=== PATIENT | male | born 1980 | race Caucasian/White ===

== ENCOUNTER 2019-03-12 08:37 | Emergency (ER) | payer OTHER ==
--- OUTSIDE RECORDS SUMMARY | 2019-03-12 08:51 | XMS REPORT | Continuity of Care Document ---
:1980 External Reference #:[id number] Author Name Brett Wing MD (transmitted by agent of provider John Alegria) Address [address] [place] [address] Care Team Providers Name Role Phone Devonte Oneil DO - Family Medicine Care Team Information Glazier Apprentice [phone] Problems Active Problems Provider Date Closed fracture of metatarsal bone Brett Wing MD Onset: 02/25/2019 Open fracture of talus Brett Wing MD Onset: 02/25/2019 Closed traumatic dislocation ankle joint Brett Wing MD Onset: 02/25/2019 Social History Type Date Description Comments Sex Unknown Tobacco Use Start: Unknown End: Unknown Patient is a former smoker Smoking Status Reviewed: 03/11/19 Patient is a former smoker Allergies, Adverse Reactions, Alerts Description No Known Drug Allergies Medications Active Medications SIG Qnty Indications Ordering Provider Date Methocarbamol Desire Purdy MD 750mg Tablets Tramadol HCL Desire Purdy MD 50mg Tablets SM Childrens Aspirin Unknown 81mg Chewtabs Enoxaparin Sodium Unknown 40mg/0.4ML Solution SM Pain Reliever Unknown 325mg Tablets Immunizations Description No Information Available Vital Signs Date Vital Result Comment 03/11/2019 1:21pm Height 70 inches 5'10" Weight 216.00 lb Heart Rate 100 /min BP Systolic 116 mmHg BP Diastolic 66 mmHg BMI (Body Mass Index) 31.0 kg/m2 02/25/2019 8:43am Height 70 inches 5'10" Weight 216.00 lb BP Systolic 118 mmHg BP Diastolic 72 mmHg Respiratory Rate 16 /min Pain Level 7 BMI (Body Mass Index) 31.0 kg/m2 Results Description No Information Available Procedures Description No Information Available Medical Devices Description No Information Available Encounters Type Date Location Provider Dx Diagnosis Office Visit 03/11/2019 Orthopedic Brett Wing, S93.04xA Dislocation of 1:15p [facility] right ankle joint, initial encounter S92.101B Unsp fracture of right talus, init encntr for open fracture S92.331A Disp fx of third metatarsal bone, right foot, init S92.341A Disp fx of fourth metatarsal bone, right foot, init S93.04xA Dislocation of right ankle joint, initial encounter Office Visit 02/25/2019 Orthopedic Brett Wing S93.04xA Dislocation of 8:30a [facility] right ankle C.M.A. joint, initial encounter S92.101B Unsp fracture of right talus, init encntr for open fracture S92.331A Disp fx of third metatarsal bone, right foot, init S92.341A Disp fx of fourth metatarsal bone, right foot, init Assessments Date Code Description Provider 03/11/2019 S93.04xA Dislocation of right ankle joint, initial Brett Wing MD encounter 03/11/2019 S92.101B Unspecified fracture of right talus, initial Brett Wing MD encounter for open fracture 03/11/2019 S92.331A Displaced fracture of third metatarsal bone, Brett Wing MD right foot, initial encounter for closed fracture 03/11/2019 S92.341A Displaced fracture of fourth metatarsal bone, Brett Wing MD right foot, initial encounter for closed fracture 03/11/2019 S93.04xA Dislocation of right ankle joint, initial Brett Wing MD encounter 02/25/2019 S93.04xA Dislocation of right ankle joint, initial Brett Wing MD encounter 02/25/2019 S92.101B Unspecified fracture of right talus, initial Brett Wing MD encounter for open fracture 02/25/2019 S92.331A Displaced fracture of third metatarsal bone, Brett Wing MD right foot, initial encounter for closed fracture 02/25/2019 S92.341A Displaced fracture of fourth metatarsal bone, Brett Wing MD right foot, initial encounter for closed fracture Plan of Treatment Future Appointment(s):04/04/2019 1:00 pm - Brett Wing MD at [facility]03/11/2019 - Brett Wing, MDS93.04xA Dislocation of right ankle joint, initial encounterNew Therapy:Physical TherapyReferral:Telephone Sex Worker Prosthetics & Orthotics,Follow up:Follow Up: 3 weeks with new ankle and foot lpeeuG28.101B Unspecified fracture of right talus, initial encounter for open [id number] Displaced fracture of third metatarsal bone, right foot, initial encounter for closed [id number] Displaced fracture of fourth metatarsal bone, right foot, initial encounter for closed fracture Functional Status Description No Information Available Mental Status Description No Information Available Referrals Refer to Reason for Referral Status Appt Date Telephone Sex Worker Prosthetics & Orthotics Orthotics: Right Left Bilateral Created Full-length custom Accommodative Medial Post 3/4 length custom Semi-Rigid Deep Heel UCBL Rigid Ventura's extension Carbon fiber baseplate to shield 1st MP joint Carbon fiber baseplate, full length to shield midfoot Other: Braces: Right Left Bilateral Solid AFO Articulated AFO [employer] (custom leather ankle gauntlet) LEE ANN ([employer] Restraint Orthotic Walker) [employer] Other: [address] [place] [address] [phone]
--- OUTSIDE RECORDS SUMMARY | 2019-03-12 08:51 | XMS REPORT | Continuity of Care Document ---
:1980 External Reference #:[id number] Author Name Brett Wing MD (transmitted by agent of provider Allyson Souza) Address [address] [place] [address] Care Team Providers Name Role Phone Devonte Oneil DO - Family Medicine Care Team Information Customer Service Specialist Problems Active Problems Provider Date Closed traumatic dislocation ankle joint Brett Wing MD Onset: 02/25/2019 Social History Type Date Description Comments Sex Unknown Tobacco Use Start: Unknown End: Unknown Patient is a former smoker Smoking Status Reviewed: 02/25/19 Patient is a former smoker Allergies, Adverse [...] Available Vital Signs Date Vital Result Comment 02/25/2019 8:43am Height 70 inches 5'10" Weight 216.00 lb BP Systolic 118 mmHg BP Diastolic 72 mmHg Respiratory Rate 16 /min Pain Level 7 BMI (Body Mass Index) 31.0 kg/m2 Results Description No Information Available Procedures Description No Information Available Medical Devices Description No Information Available Encounters Description No Information Available Assessments Date Code Description Provider 02/25/2019 S93.04xA Dislocation of right ankle joint, initial Brett Wing MD encounter Plan of Treatment Future Appointment(s):03/11/2019 9:30 am - Brett [facility] MD at [facility]02/25/2019 - Brett Wing, MDS93.04xA Dislocation of right ankle joint, initial encounterFollow up:Follow Up: 2 weeks Functional Status Description No Information Available Mental Status Description No Information Available Referrals Description No Information Available
[2019-03-12] MEDS ORDERED: HYDROcodone/ACETAMIN 5-325 MG* 1 TAB PO ONE (09:27)
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
[2019-03-12] MEDS ORDERED: Bacitracin OINTMENT* 0.5% 0.5 oz TUBE TOPICAL ONE (11:17)
[2019-03-12] MEDS ORDERED: Bacitracin OINTMENT* 0.5% 0.5 oz TUBE ONE (11:18)
[2019-03-12 11:26] VITALS: BP 114/67
== END 2019-03-12 11:24 | disposition home or self-care (01) ==
LOC: ED 08:37
DX: M79.671 Pain in right foot (principal); R60.9 Edema, unspecified
CPT/HCPCS: 99282; A9270-GY